=== PATIENT | female | born 1975 | race Hispanic/Latino ===

== ENCOUNTER 2018-07-22 14:29 | Outpatient (CLI) | payer OTHER | END 2018-07-22 14:30 | disposition home or self-care (01) | LOC: BICRAD 14:29 | PROVIDERS: ATTEND Family Medicine | DX: M79.671 Pain in right foot (principal); M19.071 Primary osteoarthritis, right ankle and foot ==

== ENCOUNTER 2024-05-03 14:20 | Outpatient (CLI) | payer OTHER | END 2024-05-03 14:21 | disposition home or self-care (01) | LOC: BICRAD 14:20 | PROVIDERS: ATTEND Family Medicine | DX: R76.12 Nonspecific reaction to cell mediated immunity measurement of gamma interferon antigen response without active tuberculosis (principal) | CPT/HCPCS: 71046 ==

== ENCOUNTER 2024-08-07 12:48 | Emergency (ER) | payer SELFPAY ==
[2024-08-07] MEDS ORDERED: Bacitracin 1 PK ONE (15:48)
== END 2024-08-07 16:08 | disposition home or self-care (01) ==
LOC: ERS 12:48
DX: S81.802A Unspecified open wound, left lower leg, initial encounter (principal); W20.8XXA Other cause of strike by thrown, projected or falling object, initial encounter
CPT/HCPCS: 99283